=== PATIENT | male | born 1980 | race African-American/Black ===

== ENCOUNTER 2017-12-22 12:45 | Emergency (ER) | payer OTHER ==
[~2017-12-22] VITALS: Ht 172.7 cm; Wt 74.8 kg
[2017-12-22 12:45] VITALS: BP_SYST 119
[2017-12-22] MEDS ORDERED: KETOROLAC TROMETHAMINE 60 MG/2 ML VIAL IM ONE (15:15)
--- NOTE | 2017-12-22 15:30 | NUR ---
Denise Thompson [employer] RE[employer] evaluating patient
--- NOTE | 2017-12-22 16:10 | NUR ---
Pt eloped from ER at this time.
== END 2017-12-22 16:10 | disposition home or self-care (01) ==
LOC: SED 12:45
DX: M54.5 Low back pain (principal); Z88.8 Allergy status to other drugs, medicaments and biological substances; Z53.20 Procedure and treatment not carried out because of patient's decision for unspecified reasons; V43.52XA Car driver injured in collision with other type car in traffic accident, initial encounter; Y93.89 Activity, other specified; Y92.410 Unspecified street and highway as the place of occurrence of the external cause; Y99.8 Other external cause status
CPT/HCPCS: 72100-TC; 99284